=== PATIENT | female | born 1990 ===

== ENCOUNTER 2020-12-24 12:25 | Inpatient (IN) | payer SELFPAY ==
[2020-12-24] MEDS ORDERED: ACETAMINOPHEN 325 MG TAB PO PRN (15:53)
[2020-12-24] MEDS ORDERED: miSOPROStol 200 MCG TAB PR PRN (15:53)
[2020-12-24] MEDS ORDERED: LOPERAMIDE 2 MG CAP PO PRN (15:53)
[2020-12-24] MEDS ORDERED: ePHEDrine SULFATE 50 MG/1 ML INJ IV PRN ×2 (15:53→19:23)
[2020-12-24] MEDS ORDERED: CARBOPROST TROMETHAMINE 250 MCG/1 ML INJ IM PRN (15:53)
[2020-12-24] MEDS ORDERED: METHYLERGONOVINE MALEATE 0.2 MG/ML VIAL IM PRN (15:53)
[2020-12-24] MEDS ORDERED: fentaNYL 100 MCG/2 ML INJ IV PRN (15:53)
[2020-12-24] MEDS ORDERED: OXYTOCIN 10 UNIT/1 ML INJ IM PRN (15:53)
[2020-12-24] MEDS ORDERED: MINERAL OIL 30 ML ORAL LIQD PO PRN (15:53)
[2020-12-24] MEDS ORDERED: ONDANSETRON 4 MG/2 ML INJ IV PRN (15:53)
[2020-12-24] MEDS ORDERED: BUTORPHANOL 2 MG/1 ML INJ IV PRN ×2 (15:53→18:32)
[2020-12-24] MEDS ORDERED: TERBUTALINE 1 MG/1 ML INJ SUB-Q PRN (15:53)
[2020-12-24] MEDS ORDERED: LACTATED RINGERS 1,000 ML IV SCH (16:00)
[2020-12-24] MEDS ORDERED: OXYTOCIN DRIP 30 UNITS/500 ML BAG IV SCH (16:00)
--- NOTE | 2020-12-24 16:01 | History and Physical Report ---
History of Present Illness Date of examination: 12/24/20 Date of admission: 12/24/2020 Chief complaint: Contractions History of present illness: 30 year old presents to L&D with complaint of contractions. Patient denies leaking of fluid or vaginal bleeding. Patient received care at [facility] and records are available. LMP 02/13/2020. EDC 12/28/2020 (dating by 20 week, 5 day US). Prenancy significant for the following: late presentation for care. labs are as follows: O+, antibody screen negative, hepatitis B surface antigen negative, HIV negative, RPR nonreactive, rubella immune, chlamydia negative, gonorrhea negative, pap smear normal, 1 hour sugar test 110, GBS negative, AFP negative. Past History Past Medical History: no pertinent history Past Surgical History: no surgical history ATHLETIC SCOUT History: abnormal PAP smear (history of abnormal pap smear in 2017). denies: chlamydia, gonorrhea, hepatitis B, hepatitis C, herpes, HIV, syphilis, trichomonas Family/Genetic History: none - Obstetrical History Expected Date of Delivery: 12/28/20 Actual Gestation: 39 Week(s) 3 Day(s) : 2 Para: 1 Hx # Term Pregnancies: 1 Number of Pregnancies: 0 Spontaneous Abortions: 0 Induced : 0 Number of Living Children: 1 Medications and Allergies Allergies Allergy/AdvReac Type Severity Reaction Status Date / Time No Known Allergies Allergy Verified 12/24/20 13:16 Review of Systems All systems: negative (contractions) - Vital Signs Vital signs: Vital Signs Pulse Pulse Ox 96 H 98 12/24/20 13:13 12/24/20 13:13 Temp Pulse Resp BP Pulse Ox 98.6 F 76 18 114/64 98 12/24/20 13:15 12/24/20 15:53 12/24/20 13:15 12/24/20 13:15 12/24/20 15:53 - Physical Exam Abdomen: Positive: normal appearance, soft. Negative: distention, tenderness, guarding, rigidity Genitourinary (Female): Positive: normal external genitalia, normal perenium. Negative: perineal/vulvar lesions Vagina: Positive: normal moisture Uterus: Positive: enlarged. Negative: tender Anus/Rectum: Positive: normal perianal skin Extremities: Positive: normal. Negative: tenderness, edema - Obstetrical FHR: category 1 Uterine Contraction Monitor Mode: External Cervical Dilatation: 3 Cervical Effacement Percentage: 70 (BBOW) station: -2 Uterine Contraction Pattern: Regular Uterine Contraction Intensity: Moderate Results All other labs normal. Assessment and Plan A: at 39 weeks, 3 days gestation. Labor. GBS negative. P: Admit. EFM. Epidural if desired. Anticipate vaginal .
[2020-12-24 16:59] LABS: Hematocrit 33.8 % (30.3-42.9); Hemoglobin 11.6 gm/dl (10.1-14.3); Mean Corpuscular HGB Conc 34 % (30-34); Mean Corpuscular Volume 81 fl (79-97); Platelet Count 307 K/mm3 (140-440); Red Blood Count 4.19 M/mm3 (3.65-5.03)
[2020-12-24] MEDS ORDERED: LIDOCAINE (2%) 20 MG/1 ML VIAL 20 ML MDV INFILTRATI ONE (17:00)
[2020-12-24] MEDS ORDERED: BUTORPHANOL 2 MG/1 ML INJ ONE (18:31)
[2020-12-24] MEDS ORDERED: NALOXONE 2 MG/2 ML INJ IV PRN (19:23)
--- NOTE | 2020-12-24 19:24 | Anesthesia Consultation ---
Anesthesia Consult and Med Hx Date of service: 12/24/20 - Airway Anesthetic Teeth Evaluation: Good ROM Head & Neck: Adequate Mental/Hyoid Distance: Adequate Mallampati Class: Class II Intubation Access Assessment: Probably Good - Pulmonary Exam CTA: Yes - Cardiac Exam Cardiac Exam: RRR - Pre-Operative Health Status ASA Pre-Surgery Classification: ASA2 Proposed Anesthetic Plan: Epidural - Pulmonary Hx Asthma: No - Cardiovascular System Hx Hypertension: No - Central Nervous System Hx Seizures: No Hx Psychiatric Problems: No - Endocrine Hx Renal Disease: No Hx Hypothyroidism: No Hx Hyperthyroidism: No - Hematic Hx Anemia: No Hx Sickle Cell Disease: No - Other Systems Hx Alcohol Use: No
[2020-12-24] MEDS ORDERED: fentaNYL-BUPIV 2 MCG/ML-0.125% 200 MCG/100 ML BAG EPIDURAL SCH (20:00)
--- NOTE | 2020-12-24 21:05 | Event Note ---
Date: 12/24/20 SVE 80/-3. Contractions every 2-3 minutes. Patient has epidural and is comfortable. Reassuring FHR tracing.
--- NOTE | 2020-12-24 22:28 | Progress Note ---
Labor Epidural - Labor Epidural Start Time: 19:33 Stop Time: 19:37 Performed by:: SHARON DELGADO Procedure: Patient is requesting epidural for labor pain. H&P, and labs reviewed. Procedure explained, questions answered, consent obtained. Patient in sitting position with blood pressure cuff and pulse ox on and working. Timeout performed immediately before start of procedure. Sterile chlorahexadine 0.5% prep/drape. 3 mL 1% lidocaine skin wheal at L[3]-L[4]. 17-gauge tuohy epidural needle advanced to [id number] with saline at [7] cm. 25-gauge spinal needle advanced until clear, free-flowing CSF. Intrathecal dexmedetomidine [5] mcg administered and needle removed. Epidural catheter advanced to [12] cm, negative aspiration for blood and csf, negative test dose 3 ml 1.5% lidocaine with epinephrine. Sterile sponge and tegaderm applied, followed by tape reinforcement. Patient tolerated procedure well.
[2020-12-25] MEDS ORDERED: OXYTOCIN DRIP 30 UNITS/500 ML BAG IV SCH (02:00)
[2020-12-25] MEDS ORDERED: AMPICILLIN/NS 2 GM/100 ML 2 GM/100 ML BAG IV ONE (03:58)
[2020-12-25] MEDS ORDERED: LIDOCAINE (2%) 20 MG/1 ML VIAL 20 ML MDV INFILTRATI ONE (04:02)
[2020-12-25] MEDS ORDERED: LANOLIN/ZINC/DIMETHICONE (LANSINOH) 7 GM TP PRN (04:40)
[2020-12-25] MEDS ORDERED: WITCH HAZEL/ GLYCERIN PAD TP PRN (04:40)
[2020-12-25] MEDS ORDERED: diphenhydrAMINE 25 MG CAP PO PRN (04:40)
[2020-12-25] MEDS ORDERED: ONDANSETRON 4 MG/2 ML INJ IV PRN (04:40)
[2020-12-25] MEDS ORDERED: MAGNESIUM HYDROXIDE (MOM) ORAL LIQD UDC PO PRN (04:40)
[2020-12-25] MEDS ORDERED: HYDROcodone/ACETAMINOPHEN 5-325 MG TAB PO PRN (04:40)
[2020-12-25] MEDS ORDERED: BENZOCAINE/MENTHOL 20/0.5% TOP SPRAY 56 GM TP PRN (04:40)
--- NOTE | 2020-12-25 04:50 | Procedure Note ---
OB Delivery Note - Delivery Date of Delivery: 12/25/20 Surgeon: DEAGNELO BRYANT Estimated blood loss: other (250 cc) - Vaginal Delivery presentation: vertex Delivery position: OA Intrapartum events: shoulder dystocia Delivery induction: none Delivery monitor: external FHT, external uterine Route of delivery: Delivery cord: 3 umbilical vessels Episiotomy: none Delivery laceration: 1st degree Delivery repair: vicryl Anesthesia: epidural Delivery comments: Spontaneous vaginal delivery at 04:07 of liveborn female infant weighing 8 lb. 1 oz. over first degree perineal laceration with apgars of 8/9. Epidural anesthesia. Turtle sign noted at delivery. Right anterior shoulder dystocia, resolved by McRobert's maneuver and delivery of posterior arm; head to body delivery interval less than 1 minute. Body cord, manually reduced. Baby placed skin to skin with mom immediately after delivery. Baby dried with warm blankets and suctioned with bulb syringe. Spontaneous cry and respirations. 3 vessel cord double clamped and cut and baby taken to radiant warmer for further suctioning and evaluation. Cord blood obtained. Delivery of intact placenta and membranes at 04:10. EBL 250 cc. Pitocin to IV fluids after delivery of placenta. Fundus firm and midline at 1 FB above umbilicus. First degree perineal laceration repaired with 2-0 vicryl. No other lacerations noted. Vaginal sweep negative. Sponge count correct. Mother and baby stable in birthing room. Baby moving all extremities well.
[2020-12-25] MEDS: DOCUSATE SODIUM 100 MG CAP PO SCH ×2 (09:36→21:53)
[2020-12-25 16:59] LABS: Hematocrit 31.6 % (30.3-42.9); Hemoglobin 10.2 gm/dl (10.1-14.3)
--- NOTE | 2020-12-25 17:13 | Post Anesthesia Evaluation ---
- Post Anesthesia Evaluation Patient Participated: Yes Airway Patent: Yes Stable Respiratory Function: Yes Nausea/Vomiting: No Temp > 96.8F: Yes Pain Manageable: Yes Adequeate Hydration: Yes Anesthesia Complications: No Block Receding Appropriately: Yes
[2020-12-25] MEDS: IBUPROFEN 600 MG TAB PO SCH (23:38)
--- NOTE | 2020-12-26 08:53 | Progress Note ---
Assessment and Plan A: S/P P: Continue routine pp orders D/C home today per pt's request Subjective - Subjective Date of service: 12/26/20 Principal diagnosis: s/p Patient reports: appetite normal, voiding normally, pain well controlled, ambulating normally [place]: doing well, bottle feeding Objective - Vital Signs Latest vital signs: Vital Signs Temp Pulse Resp BP BP Pulse Ox Pulse Ox 12/26/20 00:06 98.0 F 88 18 100/56 97 12/25/20 23:38 18 12/25/20 20:00 98 12/25/20 16:01 97.9 F 20 110/56 12/25/20 10:00 98.5 F 90 16 113/65 99 100 Intake and Output 12/25/20 12/26/20 12/26/20 22:59 06:59 14:59 Intake Total 360 480 Balance 360 480 Intake: Oral 360 Intake, Free Water 480 Other: Total, Intake Amount 360 # Voids Void 300 1 - Exam Breasts: Present: normal Abdomen: Present: normal appearance, soft, normal bowel sounds Vulva: both: normal Uterus: Present: normal, firm, fundal height below umbilicus Extremities: Present: normal Incision: Present: normal, intact
--- NOTE | 2020-12-26 09:45 | Discharge Summary ---
Providers - Providers Date of Admission: 12/24/20 12:26 Date of discharge: 12/26/20 Attending physician: GREGORY WALLS Primary care physician: GREGORY WALLS Hospitalization Reason for admission: active labor, IUP at term Delivery: Episiotomy: none Laceration: 1st degree Incision: normal, intact Other procedures: none complications: none Discharge diagnosis: IUP at term delivered [place] baby: female Hospital course: Pt was admitted with c/o uc and had a w/o pp complications. See h&P, delivery summary, and pp notes. Condition at discharge: Stable Disposition: HOME / SELF CARE / HOMELESS Plan - Discharge Medications Prescriptions: Ibuprofen [Motrin 600 MG tab] 600 mg PO Q6HR PRN #30 tablet PRN Reason: Menstrual Cramps - Provider Discharge Summary Activity: routine, no sex for 6 weeks, no heavy lifting 4 weeks, no strenuous exercise Diet: routine Instructions: routine Additional instructions: [] Smoking cessation referral if applicable(refer to patient education folder for contact #) [] Refer to [facility]'s [facility] Booklet Call your doctor immediately for: * Fever > 100.5 * Heavy vaginal bleeding ( >1 pad per hour) * Severe persistent headache * Shortness of breath * Reddened, hot, painful area to leg or breast * Drainage or odor from incision. * Keep incision clean and dry at all times and follow doctor's instructions regarding bathing/showering - Follow up plan Follow up: GREGORY WALLS MD [Primary Care Provider] - 6 Weeks
[2020-12-26] MEDS: IBUPROFEN 600 MG TAB PO SCH (10:38)
[2020-12-26] MEDS: DOCUSATE SODIUM 100 MG CAP PO SCH (10:38)
[2020-12-26 15:48] VITALS: BP 118/72
== END 2020-12-26 15:45 | disposition home or self-care (01) | DRG 807 ==
LOC: TRG 12:25 → APU 12:26 → LD 12:27 → TRG 17:25 → OB 12-25 07:55
PROVIDERS: ADMIT Obstetrics & Gynecology; ATTEND Obstetrics & Gynecology
PROC: 10E0XZZ Delivery of Products of Conception, External Approach (ICD-10-PCS; principal; 2020-12-25)
PROC: 0HQ9XZZ Repair Perineum Skin, External Approach (ICD-10-PCS; 2020-12-25)
PROC: 3E0R3BZ Introduction of Anesthetic Agent into Spinal Canal, Percutaneous Approach (ICD-10-PCS; 2020-12-25)
PROC: 00HU33Z Insertion of Infusion Device into Spinal Canal, Percutaneous Approach (ICD-10-PCS; 2020-12-25)
DX: O70.0 First degree perineal laceration during delivery (principal); Z37.0 Single live birth; Z3A.39 39 weeks gestation of pregnancy; Z20.822 Contact with and (suspected) exposure to COVID-19
CPT/HCPCS: 36415; 85014; 85018; 85027; 86592; 86850; 86900; 86901; 96360; 96361; 96374; G0378; J0595; J2590; J7120; U0003